=== PATIENT | female | born 1980 | race Hispanic/Latino ===

== ENCOUNTER 2019-01-03 15:02 | Outpatient (CLI) | payer OTHER ==
--- NOTE | 2019-01-03 16:03 | XRay Report ---
LEFT RING FINGER 3 VIEWS INDICATION / CLINICAL INFORMATION: Got pulled by dog and injured left ring finger with pain and swelling. COMPARISON: None available. FINDINGS: BONES / JOINT(S): There is an acute, transverse to slightly oblique fracture of the proximal diaphysi s of the distal phalanx of the index finger. No significant displacement of the fracture fragments is seen. There is no evidence of dislocation. SOFT TISSUES: There is mild associated soft tissue swelling. ADDITIONAL FINDINGS: None. IMPRESSION: Acute fracture of the distal phalanx of the ring finger. Signer Name: Flavio García MD Signed: 01/03/2019 3:59 PM Workstation Name: [id number]
== END 2019-01-03 15:03 | disposition home or self-care (01) ==
LOC: SPVIMAG 15:02
PROVIDERS: ATTEND Family Medicine
DX: S62.635A Displaced fracture of distal phalanx of left ring finger, initial encounter for closed fracture (principal); X58.XXXA Exposure to other specified factors, initial encounter; Y93.89 Activity, other specified; Y92.89 Other specified places as the place of occurrence of the external cause; Y99.8 Other external cause status